=== PATIENT | male | born 1980 | race Caucasian/White ===

== ENCOUNTER 2019-07-14 09:55 | Emergency (ER) | payer MEDICAID ==
[2019-07-14] MEDS ORDERED: FLU Vacc QS2019-20(6MOS+)/PF 60 MCG/0.5 ML SYRINGE IM ONE (10:45)
--- NOTE | 2019-07-14 11:14 | EDM.PDOC ---
ED HPI GENERAL MEDICAL PROBLEM - General Chief Complaint: Back Pain or Injury Stated Complaint: BACK PAIN Time Seen by Provider: 07/14/19 11:00 Source of Information: Reports: Patient History Limitations: Reports: No Limitations - History of Present Illness INITIAL COMMENTS - FREE TEXT/NARRATIVE: 39-year-old male presents to the ED with complaints of low back pain. Is at low back pain problems for many many years but usually it only last 3-7 days and gets better. 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 He was bent over the other day and set up with sudden onset of severe sharp pain in his lower back. Since then the pain has continued. He has been doing home physical therapy exercises without much relief. This morning he could barely get out of bed. He could find only one slight caudal position during the night to sleep. He feels pain radiating into both but talks with numbness and tingling and states that he could hardly get down the stairs this morning nearly fell. No problems with his bowel or bladder function. No known trauma to his lower back in the past. He's had previous cervical spine fusion without known trauma due to left upper extremity weakness. Onset: Gradual Onset Date: 07/06/19 Duration: Day(s):, Getting Worse Location: Reports: Back Quality: Reports: Ache (Diffuse low back pain can say that one signs any worse and the other.), Throbbing Severity: Moderate Improves with: Reports: Rest Worsens with: Reports: Other, Movement Context: Denies: Activity, Exercise (Bending over), Lifting, Sick Contact, Trauma, Other Associated Symptoms: Reports: Malaise. Denies: No Other Symptoms, Confusion, Chest Pain, Cough, cough w sputum, Diaphoresis, Fever/Chills, Headaches, Loss of Appetite, Nausea/Vomiting, Rash, Seizure, Shortness of Breath, Syncope Treatments [employer] T[employer]ING [employer]ISHER: Reports: NSAIDS Lower Back Pain Score (Numeric/FACES): 7 - Related Data Allergies Allergy/AdvReac Type Severity Reaction Status Date / Time cephalexin [From Keflex] Allergy Rash Verified 07/14/19 10:06 Home Meds: Home Meds Diclofenac Sodium [Voltaren] 50 mg PO TID #24 tab.ec 07/14/19 [Rx] Levothyroxine [Synthroid] 88 mcg PO DAILY 07/14/19 [History] oxyCODONE HCl/Acetaminophen [Percocet 5-325 mg Tablet] 1 - 2 each PO Q4H PRN # 20 tablet 07/14/19 [Rx] predniSONE [Prednisone] 20 mg PO ASDIRECTED #15 tablet 07/14/19 [Rx] Past Medical History Musculoskeletal History: Reports: Other (See Below) Other Musculoskeletal History: history of occasional lower back pain in the past Psychiatric History: Reports: Addiction, Other (See Below) 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 Endocrine/Metabolic History: Reports: Hypothyroidism - Past Surgical History GI Surgical History: Reports: Colonoscopy Social & Family History - Tobacco Use Smoking Status *Q: Never Smoker - Caffeine Use Caffeine Use: Reports: Coffee - Recreational Drug Use Recreational Drug Use: Yes Drug Use in Last 12 Months: Yes Recreational Drug Type: Reports: Marijuana/Hashish Other Recreational Drug Type: last used this am - Living Situation & Occupation Living situation: Reports: Occupation: Employed ED ROS GENERAL - Review of Systems Review Of Systems: See Below Constitutional: Reports: Fatigue, Decreased Appetite (From not sleeping very well.) HEENT: Reports: No Symptoms Respiratory: Reports: No Symptoms Cardiovascular: Reports: No Symptoms Endocrine: Reports: No Symptoms GI/Abdominal: Reports: No Symptoms : Reports: No Symptoms Musculoskeletal: Reports: Back Pain (See history of present illness) Skin: Reports: No Symptoms Neurological: Reports: Paresthesia (Into both but talks and upper thighs. On the L1 to nerve root distribution or dermatome) Psychiatric: Reports: No Symptoms Hematologic/Lymphatic: Reports: No Symptoms Immunologic: Reports: No Symptoms ED EXAM,LOWER BACK PAIN/INJURY - Physical Exam Exam: See Below Exam Limited By: No Limitations General Appearance: Alert, WD/WN, Mild Distress Neck: Other (Right anterior neck well-healed surgical wound from cervical neck fixation anterior approach) Respiratory/Chest: No Respiratory Distress, Lungs Clear, Normal Breath Sounds, No Accessory Muscle Use Cardiovascular: Normal Peripheral Pulses, Regular Rate, Rhythm, No Edema, No Murmur, No Rub GI/Abdominal: Normal Bowel Sounds, Soft, Non-Tender, No Organomegaly, No Abnormal Bruit, No Mass, Pelvis Stable, Other (Scaphoid abdomen well muscled.) Back Exam: Normal Inspection, Decreased Range of Motion, Muscle Spasm, Vertebral Tenderness (Right paraspinal muscle spasm adjacent to the lumbar spine worse on the right as compared to the left. Nurse over L4-L5 facet joints bilaterally.), Other (No sacroiliac joint pain bilaterally.). No: Full Range of Motion Extremities: Normal Inspection, Normal Range of Motion, Non-Tender Neurological: Alert, Normal Mood/Affect, Normal Dorsiflexion, CN II-XII Intact Psychiatric: Normal Affect, Normal Mood Skin Exam: Warm, Dry, Intact, Normal Color, No Rash Course - Vital Signs Last Recorded V/S: Last Vital Signs Temp 36.8 C 07/14/19 10:07 Pulse 64 07/14/19 10:07 Resp 14 07/14/19 10:07 BP 129/91 H 07/14/19 10:07 Pulse Ox 95 07/14/19 10:07 - Orders/Labs/Meds Meds: Medications Discontinued Medications Generic Name Dose Route Start Last Admin Trade Name Freq PRN Reason Stop Dose Admin Influenza Virus Vaccine 60 mcg 07/14/19 10:45 07/14/19 11:25 Fluzone Quad Syringe IM 07/14/19 10:46 60 mcg .ONCE ONE Administration Prednisone 20 mg 07/14/19 13:31 07/14/19 13:41 Prednisone PO 07/14/19 13:32 20 mg ONETIME ONE Administration - Radiology Interpretation Free Text/Narrative:: 39-year-old male presents the ED with diffuse low back pain gradually worsening over the last week to 10 days. 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 He nearly fell down the stairs because of limited mobility in his legs due to back pain. Known injuries to his lower back past or recent. Emanation reveals facet joint tenderness L4- L5 bilaterally. Leg raising was to 60 bilaterally without any restrictions no evidence of nerve root entrapment. Plan CT of the lumbar spine to be performed. Departure - Departure Time of Disposition: 13:27 Disposition: Home, Self-Care 01 Condition: Fair Clinical Impression: Acute myofascial strain of lumbar region Qualifiers: Encounter type: initial encounter Qualified Code(s): S39.012A - Strain of muscle, fascia and tendon of lower back, initial encounter - Discharge Information *PRESCRIPTION DRUG MONITORING PROGRAM REVIEWED*: Not Applicable *COPY OF PRESCRIPTION DRUG MONITORING REPORT IN PATIENT TANJA: Not Applicable Prescriptions: Diclofenac Sodium [Voltaren] 50 mg PO TID #24 tab.ec oxyCODONE HCl/Acetaminophen [Percocet 5-325 mg Tablet] 1 - 2 each PO Q4H PRN # 20 tablet PRN Reason: pain relief. predniSONE [Prednisone] 20 mg PO ASDIRECTED #15 tablet Instructions: Back Injury Prevention, [id number], Low Back Strain Referrals: Terrance Marcos PA-C [Primary Care Provider] - Forms: ED Department Discharge, ED Return to Work/School Form Additional Instructions: Evaluation in the emergency him today in regards to acute onset of low back pain gradually worsening over the last week or so. Examination reveals marked paraspinal muscle spasm of the lower back particularly #45 and lumbar 5 S1 facet joints bilaterally. No evidence of nerve root entrapment or radiculopathy to suggest disc herniation or compression of the nerve root. She of the lumbar spine reveals rubs a very minimal anterior wedging of the lumbar 1 vertebra from previous trauma but nothing new. No acute fractures were identified. No cancer identified. No significant disc herniation identified. All nerve roots are free. Treatment is therefore designed to try and reduce the inflammation in the facet joints and thus reduce the pain in your back . Suggest prednisone 20 mg twice daily for the next 5 days and then once in the morning only for another 5 days. Usually it's taken with breakfast and supper. First dose was given in the ED this afternoon. Anti-inflammatories to be Voltaren 50 mg 3 times daily for the next 8 days to reduce pain and inflammation in the lower back. Percocet 5/325 mg one or 2 tablets every 4-6 hours as necessary for pain relief until the anti-inflammatories become effective. Suggest off work until at least Friday next week.
--- NOTE | 2019-07-14 13:29 | CT ---
CT lumbar spine Technique: Multiple axial sections were obtained from above the T9-T10 disc inferiorly through the L5-S1 disc. Reconstructed sagittal and coronal images were reviewed. Findings: Minimal anterior wedging of L1 is seen. No acute fracture line is definitely appreciated. Other vertebral body heights are maintained. No acute fracture line is seen within other levels of the lower thoracic or lumbar spine. No abnormal subluxation is seen. No disc herniation is seen. Impression: 1. Slight anterior wedging of L1. This is felt to be old. 2. Nothing acute is appreciated on CT study of the lumbar spine. Diagnostic code #2 This report was dictated in [place] Standard Time
[2019-07-14] MEDS ORDERED: predniSONE 20 MG Tab PO ONE (13:31)
== END 2019-07-14 13:42 | disposition home or self-care (01) ==
LOC: JD.ED 09:55
DX: S39.012A Strain of muscle, fascia and tendon of lower back, initial encounter (principal); E03.9 Hypothyroidism, unspecified; Z88.1 Allergy status to other antibiotic agents; Z79.890 Hormone replacement therapy; Z23 Encounter for immunization; X50.1XXA Overexertion from prolonged static or awkward postures, initial encounter; Y99.0 Civilian activity done for income or pay
CPT/HCPCS: 72131; 90471; 90686; 99283; A9270; G0008

== ENCOUNTER 2020-06-10 20:15 | Emergency (ER) | payer MEDICAID ==
--- NOTE | 2020-06-10 20:32 | EDM.PDOC ---
ED HPI GENERAL MEDICAL PROBLEM - General Chief Complaint: Lower Extremity Injury/Pain Stated Complaint: [facility] Time Seen by Provider: 06/10/20 20:18 Source of Information: Reports: Patient History Limitations: Reports: No Limitations - History of Present Illness INITIAL COMMENTS - FREE TEXT/NARRATIVE: This is a 40-year-old male. He was in the shower this evening and apparently rinsing out some conditioner from his hair and he slipped and he fell and he is injured his right lower leg. Apparently there is a deformity there that he noted and so he has been trying to keep it in place and he called the ambulance and they brought him to the ER. He is in a cardboard splint to the right lower extremity. Did on his buttocks but he states he does not have any other i njuries from this fall. He did not hit his head. He denies any left lower extremity or upper extremity injuries. He does have a recent microdiscectomy of L5-S1 on the left side in July 2019 at [facility] but that has not been aggravated. He has had a Covid test 7 days ago that was negative and he has not been exposed to anyone with Covid that he knows of for at least 21 days. Any cough congestion sore throat fever chills nausea vomiting diarrhea or fatigue. Right Lower Leg Pain Score (Numeric/FACES): 6 - Related Data Allergies Allergy/AdvReac Type Severity Reaction Status Date / Time cephalexin [From Keflex] Allergy Rash Verified 06/10/20 20:27 Home Meds: Home Meds Levothyroxine [Synthroid] 88 mcg PO DAILY 07/14/19 [History] Acetaminophen/oxyCODONE [Percocet 325-5 MG] 1 each PO Q6H PRN #20 tab 06/10/20 [Rx] Past Medical History Musculoskeletal History: Reports: Other (See Below) Other Musculoskeletal History: history of occasional lower back pain in the past Psychiatric History: Reports: Addiction, Other (See Below) 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 Endocrine/Metabolic History: Reports: Hypothyroidism - Past Surgical History GI Surgical History: Reports: Colonoscopy Social & Family History - Caffeine Use Caffeine Use: Reports: Coffee - Living Situation & Occupation Living situation: Reports: Occupation: Employed Review of Systems - Review of Systems Review Of Systems: See Below Constitutional: Denies: Chills, Fever Eyes: Reports: No Symptoms Ears: Reports: No Symptoms Nose: Denies: Congestion Mouth/Throat: Reports: No Symptoms Respiratory: Denies: Shortness of Breath, Cough Cardiovascular: Denies: Chest Pain GI/Abdominal: Denies: Abdominal Pain Genitourinary: Reports: No Symptoms Musculoskeletal: Reports: Other (As per HPI) Skin: Reports: No Symptoms Neurological: Reports: No Symptoms Psychiatric: Reports: No Symptoms ED EXAM, GENERAL - Physical Exam Exam: See Below Exam Limited By: No Limitations General Appearance: Alert, WD/WN, No Apparent Distress Eye Exam: Bilateral Eye: Normal Inspection Ears: Normal External Exam Nose: Normal Inspection Throat/Mouth: Normal Inspection, Normal Lips, Normal Oropharynx, Normal Voice, No Airway Compromise Head: Atraumatic, Normocephalic Neck: Supple, Other (No cervical pain) Respiratory/Chest: No Respiratory Distress, Lungs Clear, Normal Breath Sounds, Other (No tenderness of the ribs on palpation) Cardiovascular: Regular Rate, Rhythm, No Murmur GI/Abdominal: Soft, Non-Tender Back Exam: Normal Inspection, Full Range of Motion Extremities: Other (Right lower extremity on the distal tib-fib area there is an obvious swelling and slight deformity noted. It does not appear to involve the ankle. He denies any foot pain. He does have 2+ pedal pulses. His capillary refill is less than 2 seconds. There is no other right lower extremity injury. He denies any knee pain or hip pain. His upper extremities and his left lower extremity are atraumatic.) Psychiatric: Normal Affect, Normal Mood Skin Exam: Warm, Dry ED TRAUMA EXTREMITY PROCEDURES - Splinting Right Lower Extremity Splint Site: Right Tib/Fib Pre-Procedure NV Status: Normal Post-Procedure NV Status: Normal Splint Material: Fiberglass Splint Design: Sugar Tong, Posterior Applied & Form Fitted By: Provider, Nurse Provider Post-Splint Application NV Check: NV Status Normal, Good Position Complications: No Complication Description: There was no difficulty in placing the splint and macrina ping it in good position. Course - Vital Signs Last Recorded V/S: Last Vital Signs Temp 97.6 F 06/10/20 20:19 Pulse 65 06/10/20 20:19 Resp 20 06/10/20 20:19 BP 130/74 06/10/20 20:19 Pulse Ox 100 06/10/20 20:19 - Orders/Labs/Meds Orders: Active Orders 24 hr Category Date Time Status Influenza Vaccine Charge [RC] .DISCHARGE Care 06/10/20 20:31 Active Tibia Fibula Rt [CR] Stat Exams 06/10/20 20:26 Taken Meds: Medications Discontinued Medications Generic Name Dose Route Start Last Admin Trade Name Freq PRN Reason Stop Dose Admin Influenza Virus Vaccine 60 mcg 06/10/20 20:45 Fluzone Quad Syringe IM 06/10/20 20:46 .ONCE ONE - Radiology Interpretation Free Text/Narrative:: X-ray of the right tib-fib reveals a spiral fracture of the distal shaft of the tibia and a fracture of the proximal fibula with minimal displacement. - Re-Assessments/Exams Free Text/Narrative Re-Assessment/Exam: 06/10/20 21:[address] Rolon at [facility] in [place]. He is comfortable with us putting this patient in a splint and having him see Dr. Goldman on Friday. Departure - Departure Time of Disposition: 21:26 Disposition: Home, Self-Care 01 Condition: Fair Clinical Impression: Fracture of fibula with tibia, right, closed Qualifiers: Encounter type: initial encounter Qualified Code(s): S82.201A - Unspecified fracture of shaft of right tibia, initial encounter for closed fracture; S82.401A - Unspecified fracture of shaft of right fibula, initial encounter for closed fracture - Discharge Information *PRESCRIPTION DRUG MONITORING PROGRAM REVIEWED*: Not Applicable *COPY OF PRESCRIPTION DRUG MONITORING REPORT IN PATIENT TANJA: Not Applicable Prescriptions: Acetaminophen/oxyCODONE [Percocet 325-5 MG] 1 each PO Q6H PRN #20 tab PRN Reason: Pain Instructions: Tibial and Fibular Fractures, Cast or Splint Care, Adult Referrals: Berlin Goldman MD [Physician] - Forms: ED Department Discharge Additional Instructions: Stay in the splint at all times until you follow-up with Dr. Goldman, use the crutches at all times and do not put any weight on that right leg because the fractures will shift and you might have to have surgery then, take the pain medication as needed, keep the leg elevated and iced over the next 48 hours, follow-up with Dr. Goldman on Friday by calling his office Friday to get an appointment for evaluation and casting of your fracture, return to the ER if needed Sepsis Event Note (ED) - Evaluation Sepsis Screening Result: No Definite Risk - Focused Exam Vital Signs: Vital Signs Temp Pulse Resp BP Pulse Ox 06/10/20 20:19 97.6 F 65 20 130/74 100 - My Orders Last 24 Hours: My Active Orders 06/10/20 20:26 Tibia Fibula Rt [CR] Stat 06/10/20 20:31 Influenza Vaccine Charge [RC] .DISCHARGE - Assessment/Plan Last 24 Hours: My Active Orders 06/10/20 20:26 Tibia Fibula Rt [CR] Stat 06/10/20 20:31 Influenza Vaccine Charge [RC] .DISCHARGE
[2020-06-10] MEDS ORDERED: FLU VACC QS2020-21(6MOS UP)/PF 60 MCG/0.5 ML SYRINGE IM ONE (20:45)
--- NOTE | 2020-06-12 09:54 | CR ---
PROCEDURE INFORMATION: Exam: XR Right Tibia and Fibula Exam date and time: 06/10/2020 8:42 PM Age: 40 years old Clinical indication: Pain; Other: Fall, deformity. TECHNIQUE: Imaging protocol: XR Right tibia and fibula. Views: 2 views. COMPARISON: No relevant prior studies available. FINDINGS: Bones/joints: Spiral fracture of the distal tibial diaphysis with approximately 4 mm maximum displacement. Fracture of proximal fibular diaphysis showing 4 mm maximum displacement, probably spiral in nature. Soft tissues: Prepatellar soft tissue swelling. IMPRESSION: 1. Spiral fracture of the distal tibial diaphysis with approximately 4 mm maximum displacement. 2. Fracture of proximal fibular diaphysis showing 4 mm maximum displacement, probably spiral in nature. Thank you for allowing us to participate in the care of your patient. Dictated and Authenticated by: Manan Mendoza MD 06/10/2020 10:09 PM Central Time ([place] & [place]) [place]
== END 2020-06-10 21:50 | disposition home or self-care (01) ==
LOC: JD.ED 20:15
DX: S82.241A Displaced spiral fracture of shaft of right tibia, initial encounter for closed fracture (principal); S82.831A Other fracture of upper and lower end of right fibula, initial encounter for closed fracture; E03.9 Hypothyroidism, unspecified; Z88.1 Allergy status to other antibiotic agents; Z23 Encounter for immunization; Z79.899 Other long term (current) drug therapy; W01.0XXA Fall on same level from slipping, tripping and stumbling without subsequent striking against object, initial encounter
CPT/HCPCS: 29515; 73590-26-RT; 73590-RT; 90686; 99284-25; G0008

== ENCOUNTER 2020-06-15 09:42 | Day surgery (SDC) | payer MEDICAID ==
[~2020-06-15 09:42] MED LIST: Dexamethasone 4 MG/ML 5 ML MDV ONE; HYDROmorphone 0.5 MG/0.5 ML Syringe ONE; Ketorolac 30 MG/ML SDV ONE; Lactated Ringers 1,000 ML ONE; Lidocaine 1% 4 ML ONE; Lidocaine 1%/Sod Bicarbonate in NS 8.4% 1 ML Syringe IDERM PRN; Midazolam 1 MG/ML 2 ML SDV ONE; Ondansetron 4 MG/2 ML SDV ONE; Propofol 200 MG/20 ML SDV ONE; Sodium Chloride 0.9% 10 ML Syringe FLUSH PRN; fentaNYL 250 MCG/5 ML SDV ONE
[2020-06-15] MEDS: Lactated Ringers 1,000 ML IV SCH ×2 (09:50→16:28)
--- NOTE | 2020-06-15 11:08 | PCM.PREANE ---
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) - Physical Assessment NPO Status Date: 06/14/20 NPO Status Time: 00:00 Vital Signs: Last Vital Signs Temp 36.4 C 06/15/20 09:40 Pulse 57 L 06/15/20 09:40 Resp 16 06/15/20 09:40 BP 131/84 06/15/20 09:40 Pulse Ox 100 06/15/20 09:40 Height: 1.8 m Weight: 71.668 kg ASA Class: 3 Mental Status: Alert & Oriented x3 Airway Class: Mallampati = 1 Dentition: Reports: Normal Dentition, [place](s) Thyro-Mental Finger Breadths: 3 Mouth Opening Finger Breadths: 3 ROM/Head Extension: Full Lungs: Clear to Auscultation, Normal Respiratory Effort Cardiovascular: Regular Rate, Regular Rhythm - Allergies Allergies/Adverse Reactions: Allergies Allergy/AdvReac Type Severity Reaction Status Date / Time cephalexin [From Keflex] Allergy Rash Verified 06/14/20 14:12 - Anesthesia Plan Pre-Op Medication Ordered: None - Acknowledgements Anesthesia Type Planned: Spinal Pt an Appropriate Candidate for the Planned Anesthesia: Yes Alternatives and Risks of Anesthesia Discussed w Pt/Guardian: Yes Pt/Guardian Understands and Agrees with Anesthesia Plan: Yes PreAnesthesia Questionnaire HEENT History: Reports: Other (See Below) Other HEENT History: pharyngitis, ear canal lesion, wears glasses, contacts Cardiovascular History: Reports: Heart Murmur Respiratory History: Reports: Other (See Below) Other Respiratory History: cough, COPD, hypoxia Gastrointestinal History: Reports: Chronic Constipation, Diverticulosis [employer] ASSOCIATE History: Reports: None Musculoskeletal History: Reports: Arthritis, Other (See Below) Other Musculoskeletal History: lateral epicondylitis, trapezius strain, right wrist fracture, femur fracture with repair Neurological History: Reports: Headaches, Chronic, Other (See Below) Other Neuro History: lumbar disc disease with radiculopathy, cervical radicular pain, c5-t1 fusion Psychiatric History: Reports: Addiction, Other (See Below) Other Psychiatric History: fatigue Endocrine/Metabolic History: Reports: Hypothyroidism Hematologic History: Reports: None Immunologic History: Reports: None Oncologic (Cancer) History: Reports: None Dermatologic History: Reports: Other (See Below) Other Dermatologic History: dermatitis - Infectious Disease History Infectious Disease History: Reports: None - Past Surgical History Head Surgeries/Procedures: Reports: None HEENT Surgical History: Reports: None Cardiovascular Surgical History: Reports: None Respiratory Surgical History: Reports: None GI Surgical History: Reports: Colonoscopy Male Surgical History: Reports: Vasectomy Endocrine Surgical History: Reports: None Neurological Surgical History: Reports: C-Spine Musculoskeletal Surgical History: Reports: ORIF Oncologic Surgical History: Reports: None Dermatological Surgical History: Reports: None - SUBSTANCE USE Tobacco Use Status *Q: Former Tobacco User Tobacco Use Within Last Twelve Months: No Second Hand Smoke Exposure: No Days Per Week of Alcohol Use: 0 Number of Drinks Per Day: 0 Total Drinks Per Week: 0 Recreational Drug Use History: No - HOME MEDS Home Medications: Home Meds Levothyroxine [Synthroid] 88 mcg PO DAILY 07/14/19 [History] Acetaminophen/oxyCODONE [Percocet 325-5 MG] 1 each PO Q6H PRN #20 tab 06/10/20 [Rx] Cholecalciferol (Vitamin D3) [Vitamin D3] 5,000 unit PO DAILY 06/14/20 [History] Aspirin [Aspirin EC] 325 mg PO BID #84 tab 06/15/20 [Rx] oxyCODONE 5 - 10 mg PO Q4H PRN #20 tab 06/15/20 [Rx] - CURRENT (IN HOUSE) MEDS Current Meds: Current Medications Lactated Ringer's (Ringers, Lactated) 1,000 mls @ 125 mls/hr IV ASDIRECTED SOPHIA Stop: 06/15/20 23:00 Last Admin: 06/15/20 09:50 Dose: 125 mls/hr Documented by: Lidocaine/Sodium Bicarbonate (Buffered Lidocaine 1% In Ns 8.4%) 0.25 ml IDERM ONETIME PRN PRN Reason: Prior to IV Start Stop: 06/15/20 18:00 Last Admin: 06/15/20 09:50 Dose: 0.25 ml Documented by: Sodium Chloride (Saline Flush) 10 ml FLUSH ASDIRECTED PRN PRN Reason: Keep Vein Open Stop: 06/15/20 18:00 Discontinued Medications Dexamethasone (Dexamethasone) Confirm Administered Dose 20 mg .ROUTE .STK-MED ONE Stop: 06/15/20 08:48 Fentanyl (Sublimaze) Confirm Administered Dose 250 mcg .ROUTE .STK-MED ONE Stop: 06/15/20 08:47 Hydromorphone HCl (Dilaudid) Confirm Administered Dose 0.5 mg .ROUTE .STK-MED ONE Stop: 06/15/20 08:48 Lidocaine HCl (Xylocaine-Mpf 1%) Confirm Administered Dose 4 mls @ as directed .ROUTE .STK-MED ONE Stop: 06/15/20 08:47 Lactated Ringer's (Ringers, Lactated) Confirm Administered Dose 1,000 mls @ as directed .ROUTE .STK-MED ONE Stop: 06/15/20 08:47 Ketorolac Tromethamine (Toradol) Confirm Administered Dose 30 mg .ROUTE .STK-MED ONE Stop: 06/15/20 08:48 Midazolam HCl (Versed 1 Mg/Ml) Confirm Administered Dose 2 mg .ROUTE .STK-MED ONE Stop: 06/15/20 08:47 Ondansetron HCl (Zofran) Confirm Administered Dose 4 mg .ROUTE .STK-MED ONE Stop: 06/15/20 08:47 Propofol (Diprivan 20 Ml) Confirm Administered Dose 400 mg .ROUTE .STK-MED ONE Stop: 06/15/20 08:47
[2020-06-15] MEDS ORDERED: Bupivacaine 0.25% 10 ML SDV ONE (11:09)
--- NOTE | 2020-06-15 13:24 | PCM.POSTAN ---
POST ANESTHESIA ASSESSMENT - MENTAL STATUS Mental Status: Alert, Oriented - VITAL SIGNS Vital Signs: Last Vital Signs Temp 36.4 C 06/15/20 09:40 Pulse 57 L 06/15/20 09:40 Resp 16 06/15/20 09:40 BP 131/84 06/15/20 09:40 Pulse Ox 100 06/15/20 09:40 - RESPIRATORY Respiratory Status: Respiratory Rate WNL, Airway Patent, O2 Saturation Stable, Supplemental Oxygen - CARDIOVASCULAR CV Status: Pulse Rate WNL, Blood Pressure Stable - GASTROINTESTINAL GI Status: No Symptoms - PAIN Pain Score: 4 - POST OP HYDRATION Hydration Status: Adequate & Stable - OBSERVATIONS Free Text/Narrative:: no anesthesia complications noted
[2020-06-15] MEDS ORDERED: fentaNYL 100 MCG/2 ML SDV IVPUSH PRN (13:25)
[2020-06-15] MEDS ORDERED: oxyCODONE 5 MG Tab PO PRN (13:47)
--- NOTE | 2020-06-15 14:40 | CR ---
PROCEDURE INFORMATION: Exam: [place] Fluoroscopy, Up to 1 Hour Physician Time; Radiologist Not Present For Fluoroscopy Exam date and time: 06/15/2020 1:06 PM Age: 40 years old Clinical indication: Device placement; Prior surgery; Surgery date: Post- operative (0-2 days); Surgery type: Tibia rodding TECHNIQUE: Imaging protocol: Fluoroscopy , up to 1 hour physician or other qualified health healthcare facility administrator time. This radiologist did not supervise this procedure. Exam supervised by facility personnel. Report for radiation dosage reporting and documentation only. COMPARISON: No relevant prior studies available. RADIATION DOSE METRICS: Fluoroscopy time (seconds): 96.3 seconds. Number of fluoro spot images: 4 Reference air kerma (DANIELA): 7.55 mGy (cumulative dose). FINDINGS: Procedural imaging: Right tibia Notes: Fluoroscopy supervised by facility personnel. IMPRESSION: Fluoroscopy dosage documentation. See also separate procedure notes. Thank you for allowing us to participate in the care of your patient. Dictated and Authenticated by: Nathan Kingsley MD 06/15/2020 3:35 PM Central Time ([place] & [place]) [place]
--- NOTE | 2020-06-26 07:40 | PCM.OPNOTE ---
- General Post-Op/Procedure Note Date of Surgery/Procedure: 06/15/20 Operative Procedure(s): intramedullary nailing of right tibial shaft fracture Pre Op Diagnosis: right tibial shaft fracture Post-Op Diagnosis: Same Anesthesia Technique: General LMA, Local Primary Surgeon: Berlin Goldman Anesthesia Provider: Amaury Tilley Forensic Locksmith: Aliyah Parker EBL in mLs: 150 Complications: None Condition: Good Free Text/Narrative:: [id number] nail
--- NOTE | 2020-06-30 12:54 | OR ---
DATE OF OPERATION: 06/15/2020 SURGEON: Berlin Goldman MD OPERATION PERFORMED: Intramedullary nailing of right tibial shaft fracture. PREOPERATIVE DIAGNOSIS: Right tibial shaft fracture. POSTOPERATIVE DIAGNOSIS: Right tibial shaft fracture. ANESTHESIA: General LMA with local. ANESTHESIA PROVIDER: Amaury Tilley CRNA. LEASE ADMINISTRATOR: Aliyah Parker PA-C ESTIMATED BLOOD LOSS: 150 mL. COMPLICATIONS: None. CONDITION: Stable. IMPLANTS: [place] 360 mm x 11 mm Tritanium II nail. DESCRIPTION OF PROCEDURE: The patient was identified in the preoperative holding area where proper site was marked and identified by the surgeon. The patient was taken back to the operative theater where, after adequate anesthesia, the patient's right lower extremity was sterilely prepped and draped in the usual sterile fashion. OR time-out was performed. The patient received 2 g of IV Ancef. At this time, standard incision from the inferior pole of the patella down to the tibial tubercle was done. The paratenon was incised, and the patellar tendon was split down the middle. Retractor was then placed both medially and laterally to protect the patellar tendon. A guide pin for the intramedullary nail was then placed just posterior to the anterior cortical rim and just medial to the lateral tibial spine. It was found to be in adequate position on C-arm fluoroscopy in both AP and lateral views. At this time, the opening reamer was then utilized. A ball-tipped guidewire was then placed down the fracture site, and at this time, secondary to the step-off, instead of opening for reduction, I put in a thick K-wire as a locking screw so that the K-wire deflected to the center point of the ankle. It was found to be adequately reduced with the guidewire on both the AP and lateral views. At this time, starting with an 8.5 reamer, I was able to ream up to a size 13 reamer which had good cortical chatter. The 360 x 11 mm [place] nail was then placed. It was found to be near anatomically reduced in both AP and lateral views. Cortical widths as well as rotation compared to contralateral extremity was then used to set rotation and was found to be adequately reduced on both AP and lateral views. The 2 static locking screws were placed proximally and then the wad impregnator arm was taken off proximally. The patient's knee was brought into full extension, and then perfect circles were used for 2 medial and lateral screws distally and was found to have adequate purchase with both screws. There was no prominence noted. At this time, final films were taken showing anatomic reduction. Adequate saline was irrigated through all incisions. 0 Vicryl was used for closure of the paratenon. 2-0 Vicryl was used subcutaneously, and jam were used for the skin. The patient was placed in a sterile soft dressing and sent to the PACU in stable condition. MMODAL /[id number]
== END 2020-06-15 15:55 | disposition home or self-care (01) ==
LOC: JD.SDS 09:42
PROVIDERS: ATTEND Orthopaedic Surgery
DX: S82.201A Unspecified fracture of shaft of right tibia, initial encounter for closed fracture (principal); E06.3 Autoimmune thyroiditis; E03.9 Hypothyroidism, unspecified; Z87.891 Personal history of nicotine dependence; Z88.8 Allergy status to other drugs, medicaments and biological substances; Z79.899 Other long term (current) drug therapy; Z98.890 Other specified postprocedural states; Z79.890 Hormone replacement therapy; Z79.82 Long term (current) use of aspirin
CPT/HCPCS: 27759; 76000; 87641; A9270; C1713; C1776; J1100; J1170; J1885; J2001; J2250; J2405; J2704; J3010; J3490; J7120; 01392

== ENCOUNTER 2023-05-03 11:04 | Emergency (ER) | payer MEDICAID ==
[2023-05-03] MEDS ORDERED: Acetaminophen 325 MG Tab PO ONE (12:23)
== END 2023-05-03 12:56 | disposition home or self-care (01) ==
LOC: JD.ED 11:04
DX: S60.222A Contusion of left hand, initial encounter (principal); J44.9 Chronic obstructive pulmonary disease, unspecified; E03.9 Hypothyroidism, unspecified; Z88.1 Allergy status to other antibiotic agents; Z79.899 Other long term (current) drug therapy
CPT/HCPCS: 73110; 73130; 99283; A9270